=== PATIENT | female | born 1980 | race Caucasian/White ===

== ENCOUNTER 2017-10-23 10:18 | Emergency (ER) | payer BC ==
[~2017-10-23] VITALS: Ht 162.6 cm; Wt 93.4 kg
[~2017-10-23 10:18] MED LIST: ADVIL200 MG PO; ATIVAN0.5 MG PO; BACTRIM,SEPT1 TABLE1 PO; CHEMO; DAILY VITE1 EAC1 PO; KEFLEX500 MG PO; LARIN FE 1-201 EACH PO; LEVAQUIN750 MG PO; LORATADINE10 M2 PO; PAXIL40 MG PO; TRAMADOL HCL50 MG PO; TYLENOL EXTRA500 MG PO; ZOFRAN ODT4 MG PO
[2017-10-23 11:03] LABS: HEMATOCRIT 41.3 % (36.0-46.0); MCHC 33.9 G/DL (30.0-36.0); MCV 94.3 FL (83-99); PLATELET COUNT 311 K/uL (156-360); RBC DIS.WIDTH-CV 12.3 % (11.8-14.6); RBC DIS.WIDTH-SD 42.9 % (39-53); RED BLOOD COUNT 4.38 M/uL (3.80-5.20)
[2017-10-23 11:15] LABS: CHLORIDE 110 mEq/L (99-109); POTASSIUM 3.9 mEq/L (3.7-5.4); SODIUM 140 mEq/L (136-147)
[2017-10-23 11:16] LABS: GLUCOSE 138 mg/dL (70-99)
[2017-10-23 11:20] LABS: CREATININE 0.8 mg/dL (0.6-1.3); GFR ESTIMATE (CALCULATED) > 59 mL/min/
[2017-10-23 11:21] LABS: UREA NITROGEN (BUN) 8 mg/dL (9-23)
[2017-10-23 11:26] LABS: TROP-I INTERPRETATION NEGATIVE; TROPONIN-I < 0.01 ng/mL (0.0-0.30)
[2017-10-23 14:42] LABS: TROP-I INTERPRETATION NEGATIVE; TROPONIN-I < 0.01 ng/mL (0.0-0.30)
[2017-10-23 14:55] VITALS: BP 127/77
== END 2017-10-23 14:56 | disposition home or self-care (01) ==
LOC: EME 10:18
PROVIDERS: Nurse Practitioner Family
DX: R07.9 Chest pain, unspecified (principal); Z85.72 Personal history of non-Hodgkin lymphomas; F41.9 Anxiety disorder, unspecified
CPT/HCPCS: 71046; 80048; 84484; 85027; 93005; 99281; 99284